=== PATIENT | male | born 1950 | race Caucasian/White ===

== ENCOUNTER → 2020-09-06 | Outpatient (CLI) | payer MEDICARE ==
--- NOTE | 2020-09-06 15:32 | Diagnostic Imaging Report ---
INDICATION: Chronic left knee pain. AP, oblique and lateral views of the left knee are obtained. There is moderate narrowing of the medial compartment of the knee joint with associated vacuum phenomenon. There is also subchondral sclerosis and mild articular surface irregularity. There appears to be mild joint effusion with mild marginal spurring at the patellofemoral joint. IMPRESSION: Osteoarthritis most pronounced in the medial compartment with eburnation of the adjacent articular surfaces of the medial femoral condyle and medial tibial plateau. Dictated by: Dictated on workstation # [id number]
== END ==
LOC: RAD FS 15:00
PROVIDERS: ATTEND Nurse Practitioner
DX: M17.12 Unilateral primary osteoarthritis, left knee (principal)
CPT/HCPCS: 73562